=== PATIENT | male | born 1995 | race Caucasian/White ===

== ENCOUNTER → 2017-07-03 | Outpatient (CLI) | payer OTHER ==
[~2017-07-03] MED LIST: 'PARAFON FORTE500 M1 PO; AMOXICILLIN500 MG PO; AUGMENTIN 875875 MG PO; CATAFLAM50 MG PO; CLARITIN-D 10 M1 T21 PO; CYCLOBENZAPRINE10 MG PO; HYDROCODONE BIT1 T11 PO; MEN'S MULTI-VI1 EACH PO; MOTRIN800 MG PO; Motrin,Rufen800 MG PO; NAPROSYN500 MG PO; TYLENOL325 M1 PO; ULTRAM50 MG PO; ZITHROMAX Z PA250 MG PO; [UNRECOGNIZED DRUG - REMARK]
== END | disposition home or self-care (01) ==
LOC: CARD 09:23
DX: I07.1 Rheumatic tricuspid insufficiency (principal); I10 Essential (primary) hypertension

== ENCOUNTER 2017-10-08 17:44 | Emergency (ER) | payer OTHER ==
[2017-10-08] MEDS ORDERED: NYSTATIN CREAM15 GM T (18:05)
== END 2017-10-08 18:25 | disposition home or self-care (01) ==
LOC: ED 17:44
DX: B37.2 Candidiasis of skin and nail (principal); Z79.899 Other long term (current) drug therapy

== ENCOUNTER 2018-02-02 06:15 | Emergency (ER) | payer OTHER ==
[~2018-02-02] VITALS: Ht 185.4 cm; Wt 117.9 kg
[~2018-02-02 06:15] MED LIST changes: +NYSTATIN CREAM15 GM T
== END 2018-02-02 07:00 | disposition home or self-care (01) ==
LOC: ED 06:15
DX: S62.307A Unspecified fracture of fifth metacarpal bone, left hand, initial encounter for closed fracture (principal); Z79.899 Other long term (current) drug therapy; W50.0XXA Accidental hit or strike by another person, initial encounter; Y93.89 Activity, other specified; Y92.89 Other specified places as the place of occurrence of the external cause; Y99.8 Other external cause status

== ENCOUNTER 2018-03-14 17:27 | Emergency (ER) | payer OTHER ==
[~2018-03-14] VITALS: Ht 185.4 cm; Wt 117.9 kg
[2018-03-14] MEDS ORDERED: Zofran4 MG SL (17:44)
[2018-03-14] MEDS ORDERED: FLONASE ALLERG9.9 ML NAS (17:44)
[2018-03-14] MEDS ORDERED: PREDNISONE20 M1 PO (17:44)
[2018-03-14] MEDS ORDERED: CLARITIN10 MG PO (17:44)
== END 2018-03-14 18:15 | disposition home or self-care (01) ==
LOC: ED 17:27
DX: J06.9 Acute upper respiratory infection, unspecified (principal); J02.9 Acute pharyngitis, unspecified; H92.03 Otalgia, bilateral; Z79.899 Other long term (current) drug therapy

== ENCOUNTER 2018-04-14 23:52 | Emergency (ER) | payer OTHER ==
[~2018-04-14] VITALS: Ht 185.4 cm; Wt 121.6 kg
[~2018-04-14 23:52] MED LIST changes: +CLARITIN10 MG PO; +FLONASE ALLERG9.9 ML NAS; +PREDNISONE20 M1 PO; +Zofran4 MG SL
== END 2018-04-15 00:49 | disposition home or self-care (01) ==
LOC: ED 23:52
DX: J06.9 Acute upper respiratory infection, unspecified (principal)

== ENCOUNTER 2019-04-28 17:58 | Emergency (ER) | payer OTHER ==
[~2019-04-28] VITALS: Ht 185.4 cm; Wt 113.4 kg
== END 2019-04-28 20:33 | disposition home or self-care (01) ==
LOC: ED 17:58
DX: S29.012A Strain of muscle and tendon of back wall of thorax, initial encounter (principal); X58.XXXA Exposure to other specified factors, initial encounter; Y93.43 Activity, gymnastics; Y92.89 Other specified places as the place of occurrence of the external cause; Y99.8 Other external cause status

== ENCOUNTER → 2019-11-09 | Outpatient (CLI) | payer OTHER | END | disposition home or self-care (01) | LOC: MRI 10:00 | DX: S83.8X2A Sprain of other specified parts of left knee, initial encounter (principal); M25.461 Effusion, right knee; M76.52 Patellar tendinitis, left knee; X58.XXXA Exposure to other specified factors, initial encounter; Y93.89 Activity, other specified; Y92.89 Other specified places as the place of occurrence of the external cause; Y99.8 Other external cause status ==

== ENCOUNTER 2019-11-23 01:31 | Emergency (ER) | payer OTHER ==
[~2019-11-23] VITALS: Ht 188 cm; Wt 121.6 kg
[2019-11-23 03:57] LABS: BASO # 0.1 10*3/uL (0.0-0.1); BASO % 0.8 % (0.0-1.0); EOS # 0.1 10*3/uL (0.0-0.4); EOS % 1.5 % (1.0-4.0); LYMPH % 25.7 % (27.0-41.0); MEAN CELL VOLUME 89.5 fl (80.0-94.0); MEAN CORPUSCULAR HGB 29.8 pg (27.0-31.0); MEAN CORPUSCULAR HGB CONC 33.3 g/dl (33.0-37.0); MEAN PLATELET VOLUME 10.3 fl (9.6-12.3); MONO # 0.6 10*3/uL (0.1-1.0); MONO % 7.6 % (3.0-9.0); NEUT # 5.1 10*3/uL (2.3-7.9); PLATELET COUNT AUTOMATED 195 10*3/uL (130-400); RED BLOOD COUNT 5.14 10*6/uL (4.50-5.90); RED CELL DISTRI WIDTH 13.1 % (0-14.5); WHITE BLOOD COUNT 7.9 10*3/uL (4.8-10.8)
[2019-11-23 04:14] LABS: ALBUMIN 3.9 gm/dl (3.1-4.5); ALKALINE PHOSPHATASE 59 U/L (45-117); BUN 14 mg/dl (7-24); CHLORIDE 107 mmol/L (98-107); CREATININE 1.07 mg/dL (0.70-1.30); SGOT/AST 32 IU/L (3-35); SGPT/ALT 92 U/L (12-78); SODIUM 139 mmol/L (136-145); TOTAL PROTEIN 7.4 gm/dL (6.4-8.2)
[2019-11-23 05:22] LABS: BILIRUBIN NEGATIVE (NEGATIVE); CLARITY CLEAR (CLEAR); COLOR YELLOW (YELLOW); GLUCOSE NEGATIVE (NEGATIVE); KETONE NEGATIVE (NEGATIVE)
[2019-11-23 05:27] LABS: BLOOD NEGATIVE (NEGATIVE); LEUKO ESTERASE NEGATIVE (NEGATIVE); NITRITE NEGATIVE (NEGATIVE); UROBILINOGEN 0.2 E.U./dl (0.2-1.0)
[2019-11-23 05:29] LABS: BACTERIA TRACE; RBC 0-2 rbc/hpf (0-2); WBC 0-2 wbc/hpf (0-5)
== END 2019-11-23 06:38 | disposition home or self-care (01) ==
LOC: ED 01:31
PROVIDERS: Emergency Medicine
DX: R42 Dizziness and giddiness (principal); E86.0 Dehydration; R05 Cough

== ENCOUNTER → 2020-11-14 | Outpatient (CLI) | payer OTHER | END | disposition home or self-care (01) | LOC: US 09:30 | PROVIDERS: ATTEND Family Medicine | DX: K76.0 Fatty (change of) liver, not elsewhere classified (principal); R16.1 Splenomegaly, not elsewhere classified; I10 Essential (primary) hypertension; R74.8 Abnormal levels of other serum enzymes ==

== ENCOUNTER 2021-02-08 23:38 | Emergency (ER) | payer OTHER ==
[~2021-02-08] VITALS: Ht 187.9 cm; Wt 117.9 kg
[2021-02-09] MEDS ORDERED: PREDNISONE20 M1 PO (01:05)
== END 2021-02-09 01:24 | disposition home or self-care (01) ==
LOC: ED 23:38
DX: J40 Bronchitis, not specified as acute or chronic (principal)

== ENCOUNTER 2021-02-14 18:45 | Emergency (ER) | payer OTHER ==
[~2021-02-14] VITALS: Ht 185.4 cm; Wt 130.6 kg
== END 2021-02-14 20:23 | disposition home or self-care (01) ==
LOC: ED 18:45
DX: R05 Cough (principal); R06.02 Shortness of breath

== ENCOUNTER 2021-11-08 21:46 | Emergency (ER) | payer OTHER ==
[~2021-11-08] VITALS: Ht 187.9 cm; Wt 131.5 kg
[2021-11-08] MEDS ORDERED: CEPHALEXIN500 M1 PO (22:22)
[2021-11-08] MEDS ORDERED: SEPTDS PO (22:22)
== END 2021-11-08 22:38 | disposition home or self-care (01) ==
LOC: ED 21:46
DX: L03.113 Cellulitis of right upper limb (principal)

== ENCOUNTER 2021-12-17 12:57 | Emergency (ER) | payer OTHER ==
[~2021-12-17] VITALS: Ht 187.9 cm; Wt 130.6 kg
[~2021-12-17 12:57] MED LIST changes: +CEPHALEXIN500 M1 PO; +SEPTDS PO
[2021-12-17 14:18] LABS: BASO % 0.4 % (0.0-1.0); EOS % 0.4 % (1.0-4.0); HEMATOCRIT 43.6 % (42.0-52.0); LYMPH # 0.6 10*3/uL (1.3-4.4); LYMPH % 13.2 % (27.0-41.0); MEAN CORPUSCULAR HGB 28.8 pg (27.0-31.0); MEAN CORPUSCULAR HGB CONC 33.9 g/dl (33.0-37.0); MEAN PLATELET VOLUME 10.2 fl (9.6-12.3); MONO # 0.3 10*3/uL (0.1-1.0); MONO % 7.4 % (3.0-9.0); NEUT # 3.6 10*3/uL (2.3-7.9); NEUT % 78.4 % (47.0-73.0); PLATELET COUNT AUTOMATED 191 10*3/uL (130-400); RED BLOOD COUNT 5.13 10*6/uL (4.50-5.90); RED CELL DISTRI WIDTH 12.6 % (0-14.5); WHITE BLOOD COUNT 4.6 10*3/uL (4.8-10.8)
[2021-12-17 14:20] LABS: BILIRUBIN Negative (Negative); BLOOD Negative (Negative); CLARITY Clear (Clear); COLOR Yellow (Yellow); GLUCOSE Negative (Negative); KETONE Negative (Negative); LEUKO ESTERASE Negative (Negative); NITRITE Negative (Negative); UROBILINOGEN 0.2 E.U./dl (0.0-1.0)
[2021-12-17 14:25] LABS: ALKALINE PHOSPHATASE 86 U/L (45-117); BUN 14 mg/dl (7-24); CHLORIDE 108 mmol/L (98-107); POTASSIUM 4.1 mmol/L (3.5-5.1); SGOT/AST 45 IU/L (3-35); SGPT/ALT 86 U/L (12-78); SODIUM 136 mmol/L (136-145); TOTAL PROTEIN 7.5 gm/dL (6.4-8.2)
[2021-12-17 14:34] LABS: BACTERIA TRACE; RBC 0-2 rbc/hpf (0-2); WBC 0-2 wbc/hpf (0-5)
== END 2021-12-17 15:20 | disposition home or self-care (01) ==
LOC: ED 12:57
PROVIDERS: Emergency Medicine
DX: B34.9 Viral infection, unspecified (principal); Z98.890 Other specified postprocedural states

== ENCOUNTER 2022-02-20 08:09 | Emergency (ER) | payer OTHER ==
[~2022-02-20] VITALS: Ht 187.9 cm; Wt 128.8 kg
[2022-02-20 09:02] LABS: BASO % 0.6 % (0.0-1.0); EOS # 0.1 10*3/uL (0.0-0.4); EOS % 1.6 % (1.0-4.0); HEMATOCRIT 42.8 % (42.0-52.0); LYMPH # 1.3 10*3/uL (1.3-4.4); LYMPH % 25.2 % (27.0-41.0); MEAN CELL VOLUME 85.8 fl (80.0-94.0); MEAN CORPUSCULAR HGB 29.1 pg (27.0-31.0); MEAN CORPUSCULAR HGB CONC 33.9 g/dl (33.0-37.0); MEAN PLATELET VOLUME 9.7 fl (9.6-12.3); MONO # 0.7 10*3/uL (0.1-1.0); MONO % 13.4 % (3.0-9.0); NEUT % 58.8 % (47.0-73.0); PLATELET COUNT AUTOMATED 221 10*3/uL (130-400); RED BLOOD COUNT 4.99 10*6/uL (4.50-5.90); RED CELL DISTRI WIDTH 12.7 % (0-14.5); WHITE BLOOD COUNT 5.2 10*3/uL (4.8-10.8)
[2022-02-20 09:17] LABS: ALKALINE PHOSPHATASE 66 U/L (45-117); BUN 16 mg/dl (7-24); CHLORIDE 109 mmol/L (98-107); CREATININE 1.12 mg/dL (0.70-1.30); POTASSIUM 3.4 mmol/L (3.5-5.1); SGOT/AST 23 IU/L (3-35); SGPT/ALT 63 U/L (12-78); SODIUM 138 mmol/L (136-145); TOTAL PROTEIN 6.9 gm/dL (6.4-8.2)
[2022-02-20] MEDS ORDERED: ONDANSETRON HYDR4 M1 PO (10:14)
== END 2022-02-20 10:22 | disposition home or self-care (01) ==
LOC: ED 08:09
PROVIDERS: Student in an Organized Health Care Education/Training Program
DX: K52.9 Noninfective gastroenteritis and colitis, unspecified (principal)

== ENCOUNTER 2022-04-18 09:49 | Emergency (ER) | payer OTHER ==
[~2022-04-18] VITALS: Wt 127.0 kg
[~2022-04-18 09:49] MED LIST changes: +ONDANSETRON HYDR4 M1 PO
== END 2022-04-18 12:39 | disposition home or self-care (01) ==
LOC: ED 09:49
DX: J10.1 Influenza due to other identified influenza virus with other respiratory manifestations (principal); Z20.822 Contact with and (suspected) exposure to COVID-19

== ENCOUNTER 2023-09-16 11:16 | Emergency (ER) | payer SELFPAY ==
[~2023-09-16] VITALS: Ht 185.4 cm; Wt 132.9 kg
[2023-09-16] MEDS ORDERED: Amoxicillin/Clavulanate Pota 875 MG TAB PO ONE (11:45)
[2023-09-16] MEDS ORDERED: AMOX-CLAV 875-1 EACH PO (11:45)
== END 2023-09-16 11:45 | disposition home or self-care (01) ==
LOC: ED 11:16
DX: J02.9 Acute pharyngitis, unspecified (principal); Z98.890 Other specified postprocedural states

== ENCOUNTER 2024-08-23 21:38 | Emergency (ER) | payer SELFPAY ==
[~2024-08-23] VITALS: Ht 185.4 cm; Wt 140.6 kg
[~2024-08-23 21:38] MED LIST changes: +AMOX-CLAV 875-1 EACH PO
== END 2024-08-24 00:09 | disposition home or self-care (01) ==
LOC: ED 21:38
DX: S20.212A Contusion of left front wall of thorax, initial encounter (principal); S29.9XXA Unspecified injury of thorax, initial encounter; Z98.890 Other specified postprocedural states; W21.01XA Struck by football, initial encounter; Y93.62 Activity, american flag or touch football; Y92.321 Football field as the place of occurrence of the external cause; Y99.8 Other external cause status